=== PATIENT | male | born 1970 | race Caucasian/White ===

== ENCOUNTER 2020-05-04 08:44 | Day surgery (SDC) | payer BC ==
[2020-05-03 10:15] VITALS: BMI 37.2
[~2020-05-04 08:44] MED LIST: LIDOCAINE 1% (10MG/ML) FOR IV START INTRADERMA PRN
[2020-05-04 09:18] VITALS: TEMP 97
[2020-05-04] MEDS: LACTATED RINGERS 1,000 ML IV SCH ×2 (09:31→10:14)
[2020-05-04] MEDS ORDERED: PROPOFOL 10 MG/ML 20 ML VIAL IV ONE (10:15)
--- NOTE | 2020-05-04 10:31 | P.PCN ---
Date of Procedure: 05/04/20 Procedure(s) Performed: BRIEF HISTORY: Patient is a was 49-year-old pleasant white male scheduled for an elective colonoscopy as a part of evaluation of chronic diarrhea for the last several months duration. Has 3-4 bowel movements daily with no blood in the stool. His prior history of sigmoid colectomy. PROCEDURE PERFORMED: Colonoscopy Random biopsies. PREOPERATIVE DIAGNOSIS: chronic diarrhea. IV sedation per Anesthesia. PROCEDURE: After informed consent was obtained, the patient, was brought into the endoscopy unit. IV sedation was administered by Anesthesia under continuous monitoring. Digital rectal examination was normal. Initially the Olympus CF-160 flexible video colonoscope was then inserted in the rectum, gradually advanced into the cecum without any difficulty. Careful examination was performed as the scope was gradually being withdrawn. Ileocecal valve and the appendiceal orifice were visualized and appeared normal. Prep was excellent. Mucosa of the cecum, ascending colon, transverse colon, descending colon, and rectum appeared normal. evidence of surgical anastomosis noted at 20 cm from the anal was there appeared normal. Scattered left sided diverticulosis seen. Biopsies were done from ascending and descending colon to rule out microscopic/collagenous colitis. Retroflexion was performed in the rectum and no lesions were seen. The patient tolerated the procedure well. IMPRESSION: Normal-appearing colon from rectum to cecum with no evidence of colitis or colorectal neoplasia. Scattered sigmoidal diverticulosis. Normal surgical anastomosis at 20 cm from the anal verge. RECOMMENDATIONS: Findings of this examination were discussed with the patient As well as his family. He was advised to follow with the biopsy results. He can use [id number] Imodium as needed for the diarrhea. He can have a repeat screening colonoscopy in 10 yrs.
[2020-05-04 10:32] VITALS: RESP 16
[2020-05-04 10:45] VITALS: BP 119/70; PULSE 51
== END 2020-05-04 11:21 | disposition home or self-care (01) ==
LOC: ORWHC2ENDO 08:44
PROVIDERS: ATTEND Internal Medicine Gastroenterology
DX: K57.30 Diverticulosis of large intestine without perforation or abscess without bleeding (principal); G47.33 Obstructive sleep apnea (adult) (pediatric); K21.9 Gastro-esophageal reflux disease without esophagitis; K57.90 Diverticulosis of intestine, part unspecified, without perforation or abscess without bleeding; E66.01 Morbid (severe) obesity due to excess calories; Z98.0 Intestinal bypass and anastomosis status; Z88.5 Allergy status to narcotic agent; Z79.899 Other long term (current) drug therapy; Z99.89 Dependence on other enabling machines and devices; Z68.37 Body mass index [BMI] 37.0-37.9, adult; Z87.19 Personal history of other diseases of the digestive system; Z90.49 Acquired absence of other specified parts of digestive tract
CPT/HCPCS: 88305; 45380; J2704